=== PATIENT | male | born 1955 | race Caucasian/White ===

== ENCOUNTER 2020-08-03 10:29 | Outpatient (CLI) | payer OTHER ==
[2020-08-03] MEDS ORDERED: IOVERSOL 320 100 ML VIAL IVP ONE (10:52)
[2020-08-03] MEDS ORDERED: IOVERSOL 320 50 ML VIAL ONE (10:52)
--- NOTE | 2020-08-03 15:12 | CT Report ---
PROCEDURE: Low Dose Lung Cancer Screen INDICATIONS: HISTORY OF TOBACCO USE TECHNIQUE: Noncontrast low-dose 5 mm thick sections acquired from the pulmonary apices to the posterior costophr enic angles. 7 mm thick coronal and sagittal MIP reformats were then acquired. For radiation dose r eduction, the following was used: automated exposure control, adjustment of mA and/or kV according t o patient size. COMPARISON: None. FINDINGS: Image quality: Excellent. Lungs and pleura: There is a 5 mm triangular shaped pulmonary nodule abutting the anterior margin of the right minor fissure (axial image 197, series 4), likely representing an intrafissural lymph node . Otherwise, no suspicious pulmonary nodule or mass lesions. No acute airspace disease. No septal thi ckening or nodularity. Mediastinum: Heart size is normal. Mild prostatic calcifications of the coronary arteries. No peric ardial effusion. No mediastinal adenopathy by size criteria. Thoracic aorta and central pulmonary a rteries are normal in size. Atherosclerotic of the thoracic aorta. Esophagus is normal in caliber. No hiatal hernia. Bones and chest wall: No suspicious bony lesions. No acute vertebral body compression fractures. Th ere is levoscoliosis of the mid lumbar spine with mild reciprocal dextrocurvature of the lower thorac ic spine. Multilevel thoracic spondylitic changes. No axillary or supraclavicular adenopathy by size criteria. The thyroid is normal in size. Abdomen: Visualized upper abdomen solid organs and bowel loops appear normal in the absence of contr ast. IMPRESSION: A 5 mm triangular shaped pulmonary nodule abutting the anterior margin of the right minor fissure is favored to represent an intrafissural lymph node. Otherwise, no suspicious pulmonary nodules, mass le sions, or adenopathy. Recommend continued annual surveillance CT. Chest without acute cardiopulmonary abnormalities. Reviewed by: Luis E Sandoval MD on 08/03/2020 3:11 PM PDT Approved by: Luis E Sandoval MD on 08/03/2020 3:11 PM PDT Station ID: [id number]
== END 2020-08-03 10:30 | disposition home or self-care (01) ==
LOC: DI 10:29
PROVIDERS: ATTEND Internal Medicine
DX: Z12.2 Encounter for screening for malignant neoplasm of respiratory organs (principal); R91.1 Solitary pulmonary nodule; Z87.891 Personal history of nicotine dependence
CPT/HCPCS: G0297; Q9967

== ENCOUNTER 2020-08-28 12:37 | Outpatient (CLI) | payer OTHER | END 2020-08-28 12:38 | disposition home or self-care (01) | LOC: LAB.S 12:37 | PROVIDERS: ATTEND Internal Medicine | DX: I10 Essential (primary) hypertension (principal) | CPT/HCPCS: 36415; 80048 ==

== ENCOUNTER 2021-11-19 13:38 | Outpatient (CLI) | payer OTHER, MEDICARE ==
[2021-11-19 20:02] LABS: BASOPHILS # (AUTO) 0.1 10^3/uL (0.0-0.1); BASOPHILS % (AUTO) 1.2 %; EOSINOPHILS # (AUTO) 0.4 10^3/uL (0.0-0.7); EOSINOPHILS % (AUTO) 5.9 %; HCT - HEMATOCRIT 49.1 % (42.0-52.0); HGB - HEMOGLOBIN 16.2 g/dL (14.0-18.0); LYMPHOCYTES # (AUTO) 2.1 10^3/uL (1.5-3.5); LYMPHOCYTES % (AUTO) 29.7 %; MEAN CORPUSCULAR HEMOGLOBIN 31.6 pg (27.0-31.0); MEAN CORPUSCULAR VOLUME 95.9 fL (80.0-94.0); MEAN PLATELET VOLUME 9.8 fL (7.4-11.4); MONOCYTES # (AUTO) 0.7 10^3/uL (0.0-1.0); MONOCYTES % (AUTO) 10.5 %; NEUTROPHILS # (AUTO) 3.6 10^3/uL (1.5-6.6); NEUTROPHILS % (AUTO) 52.4 %; PLT - PLATELET COUNT 281 10^3/uL (130-450); RED BLOOD COUNT 5.12 10^6/uL (4.70-6.10); RED CELL DISTRIBUTION WIDTH 12.3 % (12.0-15.0); WHITE BLOOD COUNT 6.9 x10^3/uL (4.8-10.8)
[2021-11-19 20:10] LABS: ALBUMIN 4.5 g/dL (3.2-5.5); ALBUMIN/GLOBULIN RATIO 1.3 (1.0-2.2); BILIRUBIN,TOTAL 0.7 mg/dL (0.2-1.0); CALCIUM 9.5 mg/dL (8.5-10.3); CREATININE 1.1 mg/dL (0.6-1.2); POTASSIUM 5.2 mmol/L (3.5-5.0); TOTAL PROTEIN 7.9 g/dL (6.7-8.2)
[2021-11-19 20:23] LABS: PARTIAL THROMBOPLASTIN TIME 55.7 secs (24.9-33.3)
[2021-11-19 20:37] LABS: INR 1.4 (0.8-1.2)
[2021-11-19 21:01] LABS: ESTIMATED AVERAGE GLUCOSE 108 mg/dL (70-100); HEMOGLOBIN A1c% 5.4 % (4.27-6.07)
== END 2021-11-19 13:39 | disposition home or self-care (01) ==
LOC: LAB.S 13:38
PROVIDERS: ATTEND Internal Medicine
DX: I48.91 Unspecified atrial fibrillation (principal); Z13.1 Encounter for screening for diabetes mellitus
CPT/HCPCS: 36415; 80053; 83036; 85025; 85610; 85730

== ENCOUNTER 2021-12-14 09:49 | Outpatient (CLI) | payer MEDICARE, OTHER ==
--- NOTE | 2021-12-14 10:40 | Ultrasound Report ---
PROCEDURE: Aorta Screening INDICATIONS: HISTORY OF SMOKING TECHNIQUE: Real time scanning was performed of the aorta and iliac arteries, with image documentatio n. COMPARISON: None. FINDINGS: Aorta: Proximal aortic diameter measures 2.7 x 2.5 cm. Mid-aorta measures 2.1 x 2.2 cm. Distal aor tic diameter is 1.8 x 1.8 cm. Small amount of plaque in the distal aorta. Iliac arteries: Right common iliac artery measures 1.0 x 1.0 cm. Left common iliac artery measures 1.0 x 1.0 cm. IMPRESSION: 1. No sonographic evidence of abdominal aortic aneurysm. Consider 5 year surveillance as clinically warranted. Reviewed by: Pacheco Cuenca MD on 12/14/2021 10:38 AM [facility] Approved by: Pacheco Cuenca MD on 12/14/2021 10:38 AM [facility] Station ID: [id number]
== END 2021-12-14 09:50 | disposition home or self-care (01) ==
LOC: DI 09:49
PROVIDERS: ATTEND Internal Medicine
DX: Z13.6 Encounter for screening for cardiovascular disorders (principal); Z87.891 Personal history of nicotine dependence

== ENCOUNTER 2022-01-03 11:48 | Outpatient (CLI) | payer MEDICARE ==
--- NOTE | 2022-01-03 13:11 | CT Report ---
PROCEDURE: Low Dose Lung Cancer Screen INDICATIONS: HIST OF SMOKING TECHNIQUE: Noncontrast low-dose images were acquired from the pulmonary apices to the posterior costophrenic ang les. Multiplanar MIP reformats were then acquired. For radiation dose reduction, the following was used: automated exposure control, adjustment of mA and/or kV according to patient size. COMPARISON: CT chest 08/03/2020 FINDINGS: Image quality: Excellent. Lungs and pleura: 6 mm nodule along the right major fissure on series 4 image 179 is noted. It is un changed compared to 08/03/2020. Pneumatoceles are noted in the right base as well as left upper lobe. No effusions or consolidations. Mediastinum: Heart size is normal. No pericardial effusion. No mediastinal adenopathy by size crit eria. Thoracic aorta is mildly prominent measuring 4.4 cm, unchanged. Esophagus is normal in caliber . No hiatal hernia. Bones and chest wall: No suspicious bony lesions. No vertebral body compression fractures. No axil bernard or supraclavicular adenopathy by size criteria. The thyroid is normal in size and there are no incidental findings. Abdomen: Visualized upper abdomen solid organs and bowel loops appear normal in the absence of contr ast. IMPRESSION: Unchanged 6 mm nodule, likely benign. Lung rads category 2. Recommend continued annual CT screening. CLINICAL RECOMMENDATION STATEMENTS: In patients <35 years with an ITN detected on CT, MRI, or extrathyroidal ultrasound, the Committee re commends further evaluation with dedicated thyroid ultrasound if the nodule is "e1 cm and has no susp icious imaging features, and if the patient has normal life expectancy. In patients "e35 years with an ITN detected on CT, MRI, or extrathyroidal ultrasound, the Committee r ecommends further evaluation with dedicated thyroid ultrasound if the nodule is "e1.5 cm and has no s uspicious imaging features, and if the patient has normal life expectancy. (ACR, 2014) Reviewed by: Carol Lopez MD on 01/03/2022 1:10 PM PDT Approved by: Carol Lopez MD on 01/03/2022 1:10 PM PDT Station ID: [id number]
== END 2022-01-03 11:49 | disposition home or self-care (01) ==
LOC: DI 11:48
PROVIDERS: ATTEND Internal Medicine
DX: Z12.2 Encounter for screening for malignant neoplasm of respiratory organs (principal); R91.1 Solitary pulmonary nodule; Z87.891 Personal history of nicotine dependence

== ENCOUNTER 2022-09-17 13:26 | Outpatient (CLI) | payer MEDICARE ==
--- NOTE | 2022-09-17 16:51 | MRI Report ---
PROCEDURE: LUMBAR SPINE WO INDICATIONS: LUMBAR RADICULOPATHY TECHNIQUE: Noncontrast sagittal T1 spin echo and T2 fast echo, coronal T2, sagittal STIR, axial T1 and T2 fast s pin echo through the lumbar spine. COMPARISON: None. FINDINGS: Image quality: Excellent. Alignment and Curvature: No plain films are available for comparison. Thus, for numbering purposes, 5 lumbar type vertebral bodies will be presumed for the current report. This should be confirmed with plain film correlation prior to any lumbar spinal intervention. There is loss of normal lumbar lordo sis. There is moderate leftward curvature of the mid lumbar spine. Roughly 3 mm of retrolisthesis of L3 on L4 and L4 on L5 is present. Bone Marrow: Marrow is of normal overall signal. No acute vertebral body compression fractures. Mo derate reactive signal within the end plates adjacent to the L1-L2, L2-L3, and L3-L4 intervertebral d iscs. Mild reactive signal adjacent to the remaining thoracolumbar intervertebral discs. Spinal Cord: Conus medullaris terminates at the L1-L2 disc space level. Visualized cord demonstrate s normal signal and size. Paraspinous Soft Tissues: No paravertebral masses. T12-L1: Severe disc height loss and desiccation. Mild facet and ligament flavum hypertrophy. Mild ca nal stenosis. Moderate left and mild right foraminal stenosis. L1-L2: Severe disc height loss and desiccation. Mild diffuse disc bulge. Mild epidural lipomatosis . Mild facet and ligament flavum hypertrophy. Mild canal stenosis. Mild left and moderate right whitney inal stenosis. L2-L3: Severe disc height loss and desiccation. Mild diffuse disc bulge with superimposed right po sterolateral protrusion. Mild epidural lipomatosis. Mild facet and ligament flavum hypertrophy. Mild canal stenosis. Moderate to severe right and mild left foraminal stenosis. Right L2 nerve root compre ssion. L3-L4: Severe disc height loss and desiccation. Mild diffuse disc bulge/osteophyte. Mild facet and ligament flavum hypertrophy. Moderate epidural lipomatosis. Severe canal stenosis. Moderate to severe right and moderate left foraminal stenosis. Right L3 nerve root compression. L4-L5: Mild disc height loss. Moderate disc desiccation. Mild diffuse disc bulge. Moderate facet an d ligament flavum hypertrophy. Mild epidural lipomatosis. Severe canal stenosis. Moderate to severe r ight and severe left foraminal stenosis. Left greater than right L4 nerve root compression. L5-S1: Moderate disc desiccation. Mild disc height loss and diffuse disc bulge with superimposed le ft far lateral protrusion. Mild facet and ligament flavum hypertrophy. Mild canal stenosis. Moderate right and severe left foraminal stenosis. Left L5 nerve root compression. IMPRESSION: 1. Multilevel degenerative disc and facet disease, in addition to epidural lipomatosis and ligamentum flavum hypertrophy. 2. Multilevel canal stenoses, worst at L3-L4 and L4-L5 where there are severe canal stenoses. 3. Multilevel foraminal stenoses, worst at L2-L3, L3-L4, L4-L5, and L5-S1 as described above where th ere is associated intraforaminal nerve root compression. Recommend correlation with clinical symptoms to ascertain relevance of these findings. 4. Five lumbar type vertebral bodies were presumed for the purposes of the current report. Correlati on with plainfilms for numbering purposes is recommended prior to any lumbar spinal intervention. Reviewed by: Arash Carvajal MD on 09/17/2022 4:50 PM PST Approved by: Arash Carvajal MD on 09/17/2022 4:50 PM PST Station ID: [id number]
== END 2022-09-17 13:27 | disposition home or self-care (01) ==
LOC: DI 13:26
PROVIDERS: ATTEND Internal Medicine
DX: M47.26 Other spondylosis with radiculopathy, lumbar region (principal); M47.27 Other spondylosis with radiculopathy, lumbosacral region; M47.25 Other spondylosis with radiculopathy, thoracolumbar region; M51.15 Intervertebral disc disorders with radiculopathy, thoracolumbar region; M48.05 Spinal stenosis, thoracolumbar region; M51.16 Intervertebral disc disorders with radiculopathy, lumbar region; M48.061 Spinal stenosis, lumbar region without neurogenic claudication; M51.37 Other intervertebral disc degeneration, lumbosacral region; M48.07 Spinal stenosis, lumbosacral region; M51.17 Intervertebral disc disorders with radiculopathy, lumbosacral region

== ENCOUNTER 2022-10-09 12:53 | Outpatient (CLI) | payer MEDICARE | END 2022-10-09 12:54 | disposition home or self-care (01) | LOC: RT 12:53 | PROVIDERS: ATTEND Internal Medicine | DX: I48.91 Unspecified atrial fibrillation (principal) | CPT/HCPCS: 93005 ==

== ENCOUNTER 2022-10-28 13:20 | Outpatient (CLI) | payer MEDICARE ==
--- NOTE | 2022-10-28 17:16 | XRAY Report ---
PROCEDURE: Lumbar Spine 2 View INDICATIONS: LUMBAR RADICULOPATHY TECHNIQUE: 2 views of the lumbar spine were acquired. COMPARISON: MRI of lumbar spine dated 09/17/2022 FINDINGS: Bones: 5 [id number] vertebrae are present. There is moderate levoscoliosis of lumbar spine wit h apex at L3 level unchanged from prior study. Moderate dextroscoliosis of lower thoracic spine with apex at T10 level is also seen and unchanged. There is fusion of spinous processes of L3 on L4 level with post surgical changes. No gross hardware loosening or failure. Degenerative endplate changes, l oss of disc height and bilateral facet arthrosis throughout lumbar spine is seen most notably at L3-4 level. No vertebral body compression fractures. No suspicious bony lesions. Soft tissues: Overlying bowel gas pattern is normal. No suspicious soft tissue calcifications. IMPRESSION: Prior fusion of spinous processes at L3 and L4 levels. Moderate S-shaped scoliosis as ab ove. No acute compression fracture. Degenerative disc disease throughout lower thoracic and lumbar sp ine. Reviewed by: José Miguel Gamble MD on 10/28/2022 5:15 PM PST Approved by: José Miguel Gamble MD on 10/28/2022 5:15 PM PST Station ID: [id number]
== END 2022-10-28 13:21 | disposition home or self-care (01) ==
LOC: DI 13:20
PROVIDERS: ATTEND Internal Medicine
DX: M51.36 Other intervertebral disc degeneration, lumbar region (principal); M47.816 Spondylosis without myelopathy or radiculopathy, lumbar region; M41.9 Scoliosis, unspecified; M51.34 Other intervertebral disc degeneration, thoracic region

== ENCOUNTER 2022-11-14 14:40 | Outpatient (CLI) | payer MEDICARE ==
[2022-11-14 15:18] LABS: BASOPHILS # (AUTO) 0.1 10^3/uL (0.0-0.1); EOSINOPHILS # (AUTO) 0.3 10^3/uL (0.0-0.7); EOSINOPHILS % (AUTO) 3.5 %; HCT - HEMATOCRIT 47.2 % (42.0-52.0); HGB - HEMOGLOBIN 15.9 g/dL (14.0-18.0); LYMPHOCYTES # (AUTO) 1.7 10^3/uL (1.5-3.5); MEAN CORPUSCULAR HEMOGLOBIN 32.7 pg (27.0-31.0); MEAN CORPUSCULAR HGB CONC 33.7 g/dL (32.0-36.0); MEAN CORPUSCULAR VOLUME 97.1 fL (80.0-94.0); MONOCYTES # (AUTO) 0.8 10^3/uL (0.0-1.0); MONOCYTES % (AUTO) 9.6 %; NEUTROPHILS # (AUTO) 5.1 10^3/uL (1.5-6.6); NEUTROPHILS % (AUTO) 64.6 %; PLT - PLATELET COUNT 215 10^3/uL (130-450); RED BLOOD COUNT 4.86 10^6/uL (4.70-6.10); RED CELL DISTRIBUTION WIDTH 12.5 % (12.0-15.0); WHITE BLOOD COUNT 7.9 x10^3/uL (4.8-10.8)
[2022-11-14 15:36] LABS: ALBUMIN 4.2 g/dL (3.2-5.5); ALBUMIN/GLOBULIN RATIO 1.2 (1.0-2.2); ALKALINE PHOSPHATASE 46 IU/L (42-121); ALT ALANINE AMINOTRANSFERASE 46 IU/L (10-60); AST ASPARTATE AMINOTRANSFERASE 36 IU/L (10-42); BILIRUBIN,TOTAL 0.9 mg/dL (0.2-1.0); BUN - BLOOD UREA NITROGEN 12 mg/dL (6-20); CALCIUM 9.6 mg/dL (8.5-10.3); CARBON DIOXIDE - CO2 26 mmol/L (21-32); CHLORIDE 100 mmol/L (101-111); CHOL/HDL RATIO 2.7 (<5.0); CHOLESTEROL 148 mg/dL; CREATININE 1.2 mg/dL (0.6-1.2); GFR - MDRD 61 (>89); GLUCOSE 108 mg/dL (70-100); HDL CHOLESTEROL 55 mg/dL; LDL CHOLESTEROL,CALCULATED 80 mg/dL; LDL/HDL RATIO 1.5 (<3.6); SODIUM 136 mmol/L (135-145); TOTAL PROTEIN 7.6 g/dL (6.7-8.2); TRIGLYCERIDES 65 mg/dL; VLDL CHOLESTEROL 13 mg/dL
[2022-11-14 15:48] LABS: THYROID STIMULATING HORMONE 2.12 uIU/mL (0.34-5.60)
[2022-11-14 15:57] LABS: INR 1.4 (0.8-1.2); PT - PROTHROMBIN TIME 15.6 secs (9.9-12.6)
[2022-11-14 16:04] LABS: PARTIAL THROMBOPLASTIN TIME 56.8 secs (24.9-33.3)
[2022-11-14 20:37] LABS: ESTIMATED AVERAGE GLUCOSE 111 mg/dL (70-100); HEMOGLOBIN A1c% 5.5 % (4.27-6.07)
== END 2022-11-14 14:41 | disposition home or self-care (01) ==
LOC: LAB 14:40
PROVIDERS: ATTEND Internal Medicine
DX: I10 Essential (primary) hypertension (principal); I48.91 Unspecified atrial fibrillation; Z13.1 Encounter for screening for diabetes mellitus
CPT/HCPCS: 36415; 80053; 80061; 83036; 83721; 84443; 85025; 85610; 85730

== ENCOUNTER 2023-01-22 12:07 | Outpatient (CLI) | payer MEDICARE ==
--- NOTE | 2023-01-22 13:18 | CT Report ---
PROCEDURE: CHEST WO INDICATIONS: PULMONARY NODULE TECHNIQUE: Noncontrast 1mm axial images were acquired from the pulmonary apices to the posterior costophrenic an gles. Axial 5 mm soft tissue kernel reconstructions were performed as well as 8 mm axial MIP and cor onal and sagittal 5 mm reformations. For radiation dose reduction, the following was used: automate d exposure control, adjustment of mA and/or kV according to patient size. COMPARISON: None. FINDINGS: Image quality: Excellent. Lungs and pleura: No pleural effusions. No pneumothorax. Moderate paraseptal emphysema and mild cent rilobular emphysema. Stable right minor fissure juxtapleural nodule. Stable 2.5 mm solid nodule, left lower lobe (4/194). Right lower lobe calcified granuloma. Stable 2 mm solid nodule, anterior right u pper lobe (4/214). Mediastinum: Heart size is normal. No pericardial effusions. No mediastinal adenopathy by size criter ia. No large vessel abnormality. Marked coronary calcifications for age. Chest wall and lower neck: Thyroid is unremarkable. No axillary or supraclavicular adenopathy by size . Bones: No aggressive osseous abnormality. Upper Abdomen: Unremarkable. IMPRESSION: Stable solid pulmonary nodules, which are statistically benign. Marked coronary artery calcifications for age. Consider cardiology referral. Reviewed by: Raj Dubon on 01/22/2023 1:17 PM PDT Approved by: Raj Dubon on 01/22/2023 1:17 PM PDT Station ID: [id number]
== END 2023-01-22 12:08 | disposition home or self-care (01) ==
LOC: DI 12:07
PROVIDERS: ATTEND Internal Medicine
DX: Z12.2 Encounter for screening for malignant neoplasm of respiratory organs (principal); Z87.891 Personal history of nicotine dependence; R91.8 Other nonspecific abnormal finding of lung field; I25.10 Atherosclerotic heart disease of native coronary artery without angina pectoris

== ENCOUNTER 2023-02-28 14:02 | Outpatient (CLI) | payer MEDICARE ==
--- NOTE | 2023-02-28 14:58 | Sleep Patient Instructions ---
Sleep Center Visit Summary - Patient Visit Information Reason for Visit: Initial consult for evaluation of sleep disordered breathing and other sleep issues. - Patient Instructions Instructions Attached: Sleep Study, Sleep Clinic Visit Additional Instructions: You will be completing a sleep study, either an in-lab polysomnography (PSG) or home sleep study (HST). You will follow-up in the sleep care office after the sleep study is completed to hear the results and talk about therapy, if needed. You will be called by our office staff to schedule this appointment, but you may contact us with any questions. - Clinic Information Contact: [facility] [address] [place] [address] [email or web address] T: [phone]
[2023-02-28 15:01] VITALS: BP 132/80
--- NOTE | 2023-02-28 15:01 | SLEEP CARE CONSULTATION ---
Information from patient questionnaire entered by Valentine Lara. I have reviewed and concur with the information entered by Valentine Lara. This document represents the service I personally performed and the decisions made by me, Juliann Dailey ARNP. History of Present Illness Service Date and Time: 02/28/2023 1402 Reason for Visit: New patient Chief Complaint: reports: Other (AFIB) Date of Onset: 5YRS Usual bedtime: 1AM Time it takes to fall asleep: 30-60MIN Snores at night: Yes Observed to quit breathing while asleep: No Sleeps alone due to snoring: No Number of times waking at night: 2-3 Reasons for waking at night: reports: Snoring (only a couple of times, not recently), Bathroom. denies: Choking, Gasping for air Toss, Turn, or Twitch while sleeping: Yes Recalls having dreams: Yes Usually gets out of bed at: 9-11 Feels refreshed in the morning: No (he feels it is related to medications) Morning headache: No Sleepy or fatigued during the day: Yes Ever fallen asleep while driving: No Takes day naps: No Dreams during day naps: Yes Prior sleep studies: Yes Year and Where: 1960 Additional HPI information: I had the pleasure of seeing RICARDO MEJIA today regarding the possibility of him having a sleep disorder. His current complaint is atrial fibrillation. 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 He states he does snores but it is not too loud. His significant other does not have to sleep in other room. - Parasomnia Symptoms Ever been unable to move upon waking from sleep: No Walks in sleep: No Talks in sleep: Yes Ever acted out dreams in sleep: Yes (possible flailing in sleep; hit s/o) Ever felt weak in the knees when startled or emotional: No Bothered by creepy, crawly, restless sensations in legs: No Problems with memory or concentration: No Subjective Initial [place] Sleepiness Scale score: 7 (02/28/23) Past Medical History Past Medical History: reports: Hypertension, Arthritis, Arrythmia (atrial fibrillation 2016), Impotence, Other (STENOSIS SCOLIOSIS) Social History The patient's occupation is a RETIRED. Patient is and lives in . Have you smoked in the past 12 months: No Cigarettes per day (20/pack): 1 Years of smokin Quit date: 2019 Smoking Pack Years: 0 Alcohol use: Yes Alcohol amount and frequency: 3-4 DAILY Caffeine use: Yes Caffeine amount and frequency: 1-2 DAILY Family History Family history of sleep disordered breathing: No Allergies and Home Medications Known drug allergies: No Drug allergies reviewed: Yes Home medication list reviewed: Yes (see updated list in EMR) Review of Systems Cardiovascular: reports: high blood pressure, palpitations, irregular heart rate or pulse Gastrointestinal: denies: heartburn, difficulty swallowing Urinary: reports: impotence Neurological: denies: headaches, head trauma Psychiatric: denies: anxiety, depression, mood disorder Ear/Nose/Throat: reports: wisdom teeth removed. denies: tonsillectomy Endocrine: denies: thyroid disease Musculoskeletal: reports: joint pain, neck pain, back pain, muscle pain or cramping Immunologic: denies: allergies to food or environment Physical Exam Vital signs obtained and entered by: VALENTINE Goss MA Blood Pressure: 132/80 (LEFT ARM) Cuff size: regular Heart Rate: 74 O2 Saturation: 96 Height: 5 ft 3 in Weight: 199 lb 6.4 oz Body Mass Index: 35.3 BMI Classification: Obese Neck circumference: 17.5 Mouth and throat: narrow oropharynx Soft palate: long Hard palate: normal Uvula: normal Uvula visualization: 0% Mallampati Class IV Tongue: normal in size Tonsils: 2+ Neck: normal w/o lymphadenopathy or thyromegaly Heart: irregular rhythm Lungs: clear bilaterally Impression and Plan 1. Suspected Obstructive Sleep Apnea-Hypopnea Syndrome, as suggested by a history of loud and irregular snoring, frequent awakening during the night and unrefreshed sleep. Narrow oropharynx and obesity are common predisposing factors for obstructive sleep apnea-hypopnea syndrome. I recommend proceeding to polysomnography to confirm the diagnosis and to assess severity. If the patient has significant sleep disordered breathing, a manual CPAP titration study will also be performed to find the optimal treatment pressure. I informed the patient of what the sleep studies involve and after some discussion, obtained agreement to proceed. The pathophysiology of obstructive sleep apnea-hypopnea syndrome was discussed with the patient and health risks of cardiovascular and cerebrovascular disease if not treated. Risks of drowsy driving discussed in detail and patient advised to avoid long distance driving and to socket puller at the first sign of drowsiness. Patient agreed to plan. * Schedule polysomnography +- manual CPAP titration study and return in 1-2 weeks after the study to discuss result and initiate therapy. * Avoid long distance driving or driving when feeling sleepy. * Avoid alcohol, sedative and muscle relaxant around bedtime. * Attempt to lose weight. * Review instructions provided by trained office staff on how to prepare for the sleep study. * Return for follow-up after sleep study completed. Counseling Topics: Weight loss health impact Visit Type: In Office Time Spent with Patient (minutes): 32 Provider Statement: I spent 100% of the Face to Face Visit with the patient with greater than 50% spent counseling the patient and coordination of care.
== END 2023-02-28 14:03 | disposition home or self-care (01) ==
LOC: SC 14:02
PROVIDERS: ATTEND Nurse Practitioner Family
DX: R06.83 Snoring (principal); G47.8 Other sleep disorders; E66.9 Obesity, unspecified; I10 Essential (primary) hypertension; I48.91 Unspecified atrial fibrillation; Z68.35 Body mass index [BMI] 35.0-35.9, adult; Z87.891 Personal history of nicotine dependence
CPT/HCPCS: 99203; G0463; 99212

== ENCOUNTER 2023-03-18 17:43 | Outpatient (CLI) | payer MEDICARE | END 2023-03-18 23:59 | disposition short-term general hospital (02) | LOC: EMS 17:43 | DX: R55 Syncope and collapse (principal); S00.81XA Abrasion of other part of head, initial encounter; S00.212A Abrasion of left eyelid and periocular area, initial encounter; W18.39XA Other fall on same level, initial encounter; Y93.01 Activity, walking, marching and hiking; Y92.008 Other place in unspecified non-institutional (private) residence as the place of occurrence of the external cause | CPT/HCPCS: A0425; A0427 ==

== ENCOUNTER 2023-04-02 15:58 | Outpatient (CLI) | payer MEDICARE ==
[2023-04-02 16:13] LABS: BASOPHILS # (AUTO) 0.1 10^3/uL (0.0-0.1); BASOPHILS % (AUTO) 1.3 %; EOSINOPHILS # (AUTO) 0.3 10^3/uL (0.0-0.7); EOSINOPHILS % (AUTO) 3.7 %; HCT - HEMATOCRIT 43.1 % (42.0-52.0); HGB - HEMOGLOBIN 14.9 g/dL (14.0-18.0); LYMPHOCYTES # (AUTO) 2.4 10^3/uL (1.5-3.5); LYMPHOCYTES % (AUTO) 26.7 %; MEAN CORPUSCULAR HEMOGLOBIN 33.3 pg (27.0-31.0); MEAN CORPUSCULAR HGB CONC 34.6 g/dL (32.0-36.0); MEAN CORPUSCULAR VOLUME 96.2 fL (80.0-94.0); MEAN PLATELET VOLUME 8.7 fL (7.4-11.4); MONOCYTES # (AUTO) 0.8 10^3/uL (0.0-1.0); MONOCYTES % (AUTO) 8.4 %; NEUTROPHILS # (AUTO) 5.3 10^3/uL (1.5-6.6); NEUTROPHILS % (AUTO) 59.5 %; PLT - PLATELET COUNT 409 10^3/uL (130-450); RED BLOOD COUNT 4.48 10^6/uL (4.70-6.10); RED CELL DISTRIBUTION WIDTH 12.3 % (12.0-15.0); WHITE BLOOD COUNT 8.9 x10^3/uL (4.8-10.8)
[2023-04-02 16:21] LABS: CALCIUM 9.1 mg/dL (8.5-10.3); CREATININE 1.2 mg/dL (0.6-1.2); POTASSIUM 4.7 mmol/L (3.5-5.0)
== END 2023-04-02 15:59 | disposition home or self-care (01) ==
LOC: LAB 15:58
PROVIDERS: ATTEND Internal Medicine
DX: I48.0 Paroxysmal atrial fibrillation (principal); I49.5 Sick sinus syndrome
CPT/HCPCS: 36415; 80048; 85025

== ENCOUNTER 2023-04-21 14:10 | Outpatient (CLI) | payer MEDICARE | END 2023-04-21 14:11 | disposition home or self-care (01) | LOC: SC 14:10 | PROVIDERS: ATTEND Nurse Practitioner Family | DX: G47.33 Obstructive sleep apnea (adult) (pediatric) (principal); R09.02 Hypoxemia; E66.9 Obesity, unspecified; Z68.35 Body mass index [BMI] 35.0-35.9, adult | CPT/HCPCS: G0399 ×2; 95806 ==

== ENCOUNTER 2023-06-17 12:35 | Outpatient (CLI) | payer MEDICARE ==
[2023-06-17 13:27] LABS: BASOPHILS # (AUTO) 0.1 10^3/uL (0.0-0.1); BASOPHILS % (AUTO) 0.8 %; EOSINOPHILS # (AUTO) 0.2 10^3/uL (0.0-0.7); EOSINOPHILS % (AUTO) 2.7 %; HGB - HEMOGLOBIN 15.9 g/dL (14.0-18.0); LYMPHOCYTES # (AUTO) 1.4 10^3/uL (1.5-3.5); MEAN CORPUSCULAR HEMOGLOBIN 32.2 pg (27.0-31.0); MEAN CORPUSCULAR HGB CONC 33.8 g/dL (32.0-36.0); MEAN CORPUSCULAR VOLUME 95.1 fL (80.0-94.0); MEAN PLATELET VOLUME 9.2 fL (7.4-11.4); MONOCYTES # (AUTO) 0.7 10^3/uL (0.0-1.0); MONOCYTES % (AUTO) 9.7 %; NEUTROPHILS # (AUTO) 5.1 10^3/uL (1.5-6.6); NEUTROPHILS % (AUTO) 67.5 %; PLT - PLATELET COUNT 251 10^3/uL (130-450); RED BLOOD COUNT 4.94 10^6/uL (4.70-6.10); RED CELL DISTRIBUTION WIDTH 12.1 % (12.0-15.0); WHITE BLOOD COUNT 7.5 x10^3/uL (4.8-10.8)
[2023-06-17 13:35] LABS: CALCIUM 10.2 mg/dL (8.5-10.3); POTASSIUM 4.6 mmol/L (3.5-4.5)
== END 2023-06-17 12:36 | disposition home or self-care (01) ==
LOC: LAB 12:35
PROVIDERS: ATTEND Internal Medicine
DX: I48.19 Other persistent atrial fibrillation (principal)
CPT/HCPCS: 36415; 80048; 85025; 93005

== ENCOUNTER 2023-07-18 13:41 | Outpatient (CLI) | payer MEDICARE ==
[2023-07-18 14:09] LABS: CALCIUM 9.7 mg/dL (8.5-10.3); CREATININE 0.9 mg/dL (0.6-1.3); POTASSIUM 3.7 mmol/L (3.5-4.5)
== END 2023-07-18 13:42 | disposition home or self-care (01) ==
LOC: LAB 13:41
PROVIDERS: ATTEND Internal Medicine
DX: I10 Essential (primary) hypertension (principal); I48.91 Unspecified atrial fibrillation
CPT/HCPCS: 36415; 80048

== ENCOUNTER 2023-08-01 13:25 | Outpatient (CLI) | payer MEDICARE ==
--- NOTE | 2023-08-01 13:58 | Sleep Patient Instructions ---
Sleep Center Visit Summary - Patient Visit Information Reason for Visit: 1st Compliance visit for PAP therapy - Patient Instructions Additional Instructions: You were here for follow up of CPAP therapy. You will be continued on CPAP therapy with pressure at 4-10 cmH2O. You should follow up with sleep care in 1-2 months. You may contact us sooner for any questions or concerns. - Clinic Information Contact: [facility] [address] [place] [id number] [email or web address] T: [phone]
--- NOTE | 2023-08-01 14:03 | SLEEP CARE CONSULTATION ---
Information from patient questionnaire entered by Valentine Lara. I have reviewed and concur with the information entered by Valentine Lara. This document represents the service I personally performed and the decisions made by me, Juliann Dailey ARNP. History of Present Illness Service Date and Time: 08/01/2023 1325 Previous diagnosis: Severe, Obstructive Sleep Apnea-Hypopnea Syndrome AHI: 37.2 (04/2023) Reason for follow up: first compliance Equipment type: CPAP (RESMED Airsense) Equipment obtained from: [facility] (getting supplies) Mask style: Nasal pillows (P10) Backup mask available: No (will keep old mask when replaced) Prior sleep studies: Yes Year and Where: 1960 Type of Sleep Study: Home sleep study (COMPLETED 04/22/23) HPI additional information: RICARDO MEJIA was diagnosed to have severe, AHI 37.2, obstructive sleep apnea-h ypopnea syndrome and returned today for CPAP therapy first compliance follow-up. Sleep Study - Results Type of Sleep Study: Home sleep study (COMPLETED 04/22/23) Prior sleep studies: Yes Year and Where: 1960 CPAP Compliance Data - Data Reviewed with Patient Average duration of nightly device use: 2 hours 22 minutes Compliance rate %: 13 ( days used ) Current pressure setting (cmH2O): 4-10 (95th % - 8.6) Average residual AHI: 1.4 Central apnea: 0.1 Obstructive apnea: 0.8 Average large leak: 2.4 L/min Subjective Missed days of use due to: reports: mask issues, illness (nasal congestion), other (feels like needs more air after going to bathroom) Patient concerns: reports: mask discomfort, air blowing in eyes, nasal congestion (not because of CPAP), other (headache; claustrophobic). denies: aerophagia, mask leak noise, condensation in mask/hose, dry mouth, nose, throat, epistaxis Observed to snore while using device: No Current pressure setting perceived as: comfortable On therapy, patient: reports: other ( told him he was more "lively"; he is sleeping more). denies: drowsiness while driving Initial [place] Sleepiness Scale score: 7 (02/28/23) Current [place] Sleepiness Scale score: 9 Allergies and Home Medications Known drug allergies: No Drug allergies reviewed: Yes Home medication list reviewed: Yes (diuretics) Allergy and home medication list: Allergies No Known Drug Allergies Allergy (Verified 07/31/23 13:47) Home Medications Medication Instructions Recorded Confirmed Last Taken Type DULoxetine [Cymbalta] See Rx Instructions .ROUTE .COMPLEX 02/28/23 05/02/23 Unknown History Dabigatran Etexilate Mesylate See Rx Instructions .ROUTE .COMPLEX 02/28/23 05/02/23 Unknown History [Pradaxa] Lisinopril [Zestril] See Rx Instructions .ROUTE .COMPLEX 02/28/23 05/02/23 Unknown History amLODIPine [Norvasc] See Rx Instructions .ROUTE .COMPLEX 02/28/23 05/02/23 Unknown History Furosemide [Lasix] See Rx Instructions .ROUTE .COMPLEX 08/01/23 08/01/23 Unknown History Potassium Citrate [Potassium] See Rx Instructions .ROUTE .COMPLEX 08/01/23 08/01/23 Unknown History Spironolactone [Aldactone] See Rx Instructions .ROUTE .COMPLEX 08/01/23 08/01/23 Unknown History Review of Systems Review of systems same as previous: Yes (ablation x 2 in past) Physical Exam Vital signs obtained and entered by: VALENTINE Goss MA Blood Pressure: 134/96 Heart Rate: 101 O2 Saturation: 96 Height: 5 ft 3 in (PER PT) Weight: 199 lb 9.6 oz Body Mass Index: 35.3 BMI Classification: Obese Impression and Plan 1. Obstructive Sleep Apnea-Hypopnea Syndrome, severe, with poor treatment compliance and good apnea control. Patient has had difficulty with being able to put the mask back on after getting up to the bathroom. He states he is able to go to sleep with it fine at first but when he comes back from the bathroom and puts the mask on he feels like he is not getting enough air. He has some claustrophobia issues and this will trigger some problems with this and he will take the mask off. He has got a couple of nights with 5 or more hours and his has noticed a difference on those mornings of him being more awake. He will strive to replace the mask after the bathroom needs during the night and we discussed just turning the machine on rather than waiting for it to turn on. He voiced understanding. We will follow-up with him in 1 to 2 months to recheck compliance. Patient's apnea severity and rationale for treatment to reduce apnea, improve sleep quality and reduce cardiovascular and cerebrovascular events was reviewed. I also reviewed the benefit of consistent device use of CPAP for hypertension and arrhythmia. 2. Obesity, unspecified. Currently patients BMI is 35.3. Obesity increases the risk of apnea, CPAP pressure requirements and overall health risks especially cardiovascular and diabetes. Thus patient is advised to lose weight. * Continue auto CPAP pressure at 4-10 cmH2O * Notify me if snoring with mask or feeling that the pressure is too much or too little * Attempt to lose weight * Call this office if any problems using CPAP * Return for follow up in 1-2 months, or sooner if concerns arise Counseling Topics: Spare mask, Weight loss health impact Visit Type: In Office Time Spent with Patient (minutes): 25 Provider Statement: I spent 100% of the Face to Face Visit with the patient with greater than 50% spent counseling the patient and coordination of care.
[2023-08-01 14:09] VITALS: BP 134/96; O2SAT 96
== END 2023-08-01 13:26 | disposition home or self-care (01) ==
LOC: SC 13:25
PROVIDERS: ATTEND Nurse Practitioner Family
DX: G47.33 Obstructive sleep apnea (adult) (pediatric) (principal); E66.9 Obesity, unspecified; Z68.35 Body mass index [BMI] 35.0-35.9, adult
CPT/HCPCS: 99213; G0463; 99212

== ENCOUNTER 2023-08-07 12:49 | Outpatient (CLI) | payer MEDICARE ==
[2023-08-07 13:14] LABS: CREATININE 1.1 mg/dL (0.6-1.3); POTASSIUM 5.1 mmol/L (3.5-4.5)
== END 2023-08-07 12:50 | disposition home or self-care (01) ==
LOC: LAB 12:49
PROVIDERS: ATTEND Nurse Practitioner
DX: R60.0 Localized edema (principal)
CPT/HCPCS: 36415; 80048

== ENCOUNTER 2023-09-11 12:29 | Outpatient (CLI) | payer MEDICARE | END 2023-09-11 12:30 | disposition home or self-care (01) | LOC: DI 12:29 | PROVIDERS: ATTEND Internal Medicine Cardiovascular Disease | DX: R06.02 Shortness of breath (principal); R60.0 Localized edema; I48.0 Paroxysmal atrial fibrillation; I49.5 Sick sinus syndrome; I11.9 Hypertensive heart disease without heart failure; I77.819 Aortic ectasia, unspecified site; R00.0 Tachycardia, unspecified | CPT/HCPCS: 93306 ==

== ENCOUNTER 2023-11-24 13:01 | Outpatient (CLI) | payer MEDICARE ==
[2023-11-24 13:31] LABS: BUN - BLOOD UREA NITROGEN 13 mg/dL (6-20); CARBON DIOXIDE - CO2 28 mmol/L (21-32); CHLORIDE 96 mmol/L (101-111); CHOL/HDL RATIO 1.7 (<5.0); CHOLESTEROL 136 mg/dL; CREATININE 1.2 mg/dL (0.6-1.3); GFR - MDRD 60 (>89); GLUCOSE 121 mg/dL (74-104); HDL CHOLESTEROL 78 mg/dL; LDL CHOLESTEROL,CALCULATED 46 mg/dL; LDL/HDL RATIO 0.6 (<3.6); POTASSIUM 4.8 mmol/L (3.5-4.5); SODIUM 133 mmol/L (135-145); TRIGLYCERIDES 60 mg/dL (48-352); VLDL CHOLESTEROL 12 mg/dL
[2023-11-24 13:33] LABS: BASOPHILS # (AUTO) 0.1 10^3/uL (0.0-0.1); BASOPHILS % (AUTO) 0.8 %; EOSINOPHILS # (AUTO) 0.1 10^3/uL (0.0-0.7); EOSINOPHILS % (AUTO) 0.9 %; HCT - HEMATOCRIT 45.5 % (42.0-52.0); HGB - HEMOGLOBIN 15.3 g/dL (14.0-18.0); LYMPHOCYTES # (AUTO) 1.6 10^3/uL (1.5-3.5); MEAN CORPUSCULAR HEMOGLOBIN 32.3 pg (27.0-31.0); MEAN CORPUSCULAR HGB CONC 33.6 g/dL (32.0-36.0); MEAN PLATELET VOLUME 8.9 fL (7.4-11.4); MONOCYTES % (AUTO) 10.3 %; NEUTROPHILS # (AUTO) 7.1 10^3/uL (1.5-6.6); NEUTROPHILS % (AUTO) 71.5 %; PLT - PLATELET COUNT 340 10^3/uL (130-450); RED BLOOD COUNT 4.74 10^6/uL (4.70-6.10); RED CELL DISTRIBUTION WIDTH 13.2 % (12.0-15.0)
[2023-11-24 13:40] LABS: INR 1.6 (0.8-1.2); PT - PROTHROMBIN TIME 17.6 secs (9.9-12.6)
[2023-11-24 13:47] LABS: PARTIAL THROMBOPLASTIN TIME 69.6 secs (24.9-33.3)
[2023-11-24 14:21] LABS: ESTIMATED AVERAGE GLUCOSE 97 mg/dL (70-100)
== END 2023-11-24 13:02 | disposition home or self-care (01) ==
LOC: LAB 13:01
PROVIDERS: ATTEND Internal Medicine
DX: I48.91 Unspecified atrial fibrillation (principal); I10 Essential (primary) hypertension; R73.01 Impaired fasting glucose
CPT/HCPCS: 36415; 80048; 80061; 83036; 83721; 85025; 85610; 85730

== ENCOUNTER 2024-01-12 13:29 | Outpatient (CLI) | payer MEDICARE ==
--- NOTE | 2024-01-13 06:54 | CT Report ---
PROCEDURE: Lung Cancer Screen INDICATIONS: EX SMOKER TECHNIQUE: A CT scan of the chest was performed. Intravenous contrast media was not administered. Images were re corded and evaluated at appropriate window settings. Reformats: axial MIP of the chest, coronal and s agittal. For radiation dose reduction, the following was used: automated exposure control, adjustment of mA and/or kV according to patient size. COMPARISON: CT chest dated 01/22/2023. FINDINGS: Image quality: Excellent. Prior cancer history: None given Lungs and pleura: No pleural effusions. No pneumothorax. Stable 2.5 mm left lower lobe pulmonary nod ule, image 168/12. Stable 2 mm pulmonary nodule, right upper lobe, image 175/12. Stable fissural nodu le, minor fissure of right lung, image 182, likely a benign fissural lymph node. Paraseptal and centr ilobular emphysema are again noted. Mediastinum: Heart size is normal. No pericardial effusion. Coronary artery calcifications, at least moderate, again noted. Aneurysmal dilatation of the ascending aorta, measuring 4.7 cm. On the previou s study, the ascending aorta measured 4.6 cm. No mediastinal adenopathy by size criteria. Chest wall and lower neck: Thyroid is unremarkable. No axillary or supraclavicular adenopathy by size . Bones: No aggressive osseous abnormality. Upper Abdomen: Unremarkable. IMPRESSION: Stable pulmonary nodules. Emphysematous change. Coronary artery calcifications. Aneurysma l dilatation of ascending aorta, measuring 4.7 cm, not significantly changed Lung RAD: 2 - Benign. Recommendation: Continue annual screening in 12 Months with LDCT Non-Lung Significant Findings: Aortic Aneurysm. Coronary artery calcifications. Reviewed by: Chepe Breen MD on 01/13/2024 6:53 AM PDT Approved by: Chepe Breen MD on 01/13/2024 6:53 AM PDT Station ID: [id number]
== END 2024-01-12 13:30 | disposition home or self-care (01) ==
LOC: DI 13:29
PROVIDERS: ATTEND Internal Medicine
DX: Z12.2 Encounter for screening for malignant neoplasm of respiratory organs (principal); R91.8 Other nonspecific abnormal finding of lung field; J43.2 Centrilobular emphysema; I25.10 Atherosclerotic heart disease of native coronary artery without angina pectoris; I71.21 Aneurysm of the ascending aorta, without rupture; Z87.891 Personal history of nicotine dependence

== ENCOUNTER 2024-06-30 11:01 | Outpatient (CLI) | payer MEDICARE ==
[2024-06-30] MEDS ORDERED: iohexoL-300 100 ML VIAL ONE (11:11)
[2024-06-30] MEDS: iohexoL-300 100 ML VIAL IVP ONE (12:05)
--- NOTE | 2024-06-30 13:03 | CT Report ---
PROCEDURE: Angio Chest INDICATIONS: AAA CONTRAST: 80ml [id number] TECHNIQUE: After the administration of intravenous contrast, 2 mm axial images were acquired from the pulmonary apices to the posterior costophrenic angles during the arterial phase. In addition, 1 mm lung kernel and 5 mm soft tissue kernel reconstructions were performed. 3-dimensional coronal oblique maximum int ensity projection (MIP) reformats, 8 mm axial MIP, and 5 mm coronal and sagittal MPR reformats were t hen performed through the thorax. For radiation dose reduction, the following was used: automated exp osure control, adjustment of mA and/or kV according to patient size. COMPARISON: Low-dose CT chest from 01/12/2024 FINDINGS: Image quality: Excellent. Large vessels: Mild ectasia of the ascending aorta measuring upwards of 4.5 cm in greatest diameter ( series 4, image 39). The remainder of the thoracic aorta appears unremarkable. Origins of great vesse ls appear patent. Pulmonary artery is patent without central intraluminal filling defect. Lungs and pleura: Centrilobular and paraseptal emphysema involving both upper lobes. No focal airspace opacity or consolidation. 7 mm sydnie-fissural nodule within the right middle lobe (series 6, image 47) and a slightly smaller no dule more laterally within the upper lobe, both of which are unchanged from prior study. No new pulmo nary nodules. No evidence of pneumothorax or pleural effusion. Mediastinum: Heart size is normal. No pericardial effusion. No large vessel abnormality. No mediastin al adenopathy by size criteria. Chest wall and lower neck: Thyroid is unremarkable. No axillary or supraclavicular adenopathy by size . Bones: No aggressive osseous abnormality. Upper Abdomen: Unremarkable. IMPRESSION: 1. Mild ectasia of the ascending aorta measuring 4.5 cm in greatest diameter. 2. Centrilobular and paraseptal emphysema. Stable pulmonary nodules. Reviewed by: Sidney Foreman MD on 06/30/2024 1:02 PM PDT Approved by: Sidney Foreman MD on 06/30/2024 1:02 PM PDT Station ID: [id number]
== END 2024-06-30 11:02 | disposition home or self-care (01) ==
LOC: LAB 11:01
PROVIDERS: ATTEND Internal Medicine
DX: I10 Essential (primary) hypertension (principal); I71.9 Aortic aneurysm of unspecified site, without rupture; J43.2 Centrilobular emphysema; R91.8 Other nonspecific abnormal finding of lung field
CPT/HCPCS: 36415; 71275; 82565; Q9967